=== PATIENT | female | born 2000 | race Caucasian/White ===

== ENCOUNTER → 2019-01-11 | Outpatient (CLI) | payer MEDICAID ==
--- NOTE | 2019-01-12 03:53 | MR ---
EXAMINATION TYPE: MR brain wo/w con DATE OF EXAM: 01/11/2019 COMPARISON: None HISTORY: Rt facial numbness TECHNIQUE: Multiplanar, multisequence images of the brain and brainstem is performed without and with IV contras t, utilizing 7.5 mL intravenous Gadavist . FINDINGS: Ventricles and sulci appear normal. There is no mass effect nor midline shift. There is no evidence of intracranial hemorrhage. There is no evidence of cerebral edema. There is no evidence of cortical infarct. Corpus callosum appears normal. The harley-white matter structures have normal signal pattern. There is no edema. Brainstem is intact. Sella turcica appears normal. The contrast images show normal opacification of the venous sinuses. There is arterial flow in the an terior middle and posterior cerebral arteries. Contrast images show no pathologic enhancement. IMPRESSION: Normal MR scan of the brain.
== END | disposition home or self-care (01) ==
LOC: RADMRIMAIN 19:18
PROVIDERS: ATTEND Family Medicine
DX: R20.2 Paresthesia of skin (principal)
CPT/HCPCS: 70553; A9585

== ENCOUNTER → 2021-07-29 | Outpatient (CLI) | payer MEDICAID ==
--- NOTE | 2021-07-29 10:11 | CT ---
EXAMINATION TYPE: CT abdomen pelvis w con DATE OF EXAM: 07/29/2021 COMPARISON: None available HISTORY: Right lower quadrant pain, rectal bleeding CT DLP: 1005 mGycm Automated exposure control for dose reduction was used. TECHNIQUE: Helical acquisition of images was performed from the lung bases through the pelvis. CONTRAST: Performed with Oral Contrast and with IV Contrast, patient injected with 70 mL of Isovue 300. FINDINGS: LUNG BASES: No significant abnormality is appreciated. LIVER/GB: No significant abnormality is appreciated. PANCREAS: No significant abnormality is seen. SPLEEN: No significant abnormality is seen. ADRENALS: No significant abnormality is seen. KIDNEYS: No significant abnormality is seen. FREE AIR: No free air is visualized. RETROPERITONEAL ADENOPATHY: None visualized REPRODUCTIVE ORGANS: No gross uterine or adnexal mass. URINARY BLADDER: No significant abnormality is seen. PELVIC ADENOPATHY: No pathologically enlarged pelvic lymph nodes. OSSEOUS STRUCTURES: No aggressive bone lesion. Suspected L4-5 disc herniation. Further MRI assessmen t can be considered. BOWEL: Unremarkable stomach, duodenum and small bowel. Moderate fecal loading of the colon. Normal a ppendix. OTHER: Unremarkable abdominal aorta and IVC. Free fluid is seen in the cul-de-sac, possibly physiolog ical. IMPRESSION: No definite acute abnormality or suspicious lesion seen in the abdomen or the pelvis. Incidental find ings as described above.
== END | disposition home or self-care (01) ==
LOC: RADCTMAIN 07:13
PROVIDERS: ATTEND Internal Medicine Geriatric Medicine
DX: K62.5 Hemorrhage of anus and rectum (principal)
CPT/HCPCS: 74177; Q9967 ×2